=== PATIENT | female | born 1975 | race Two or more races ===

== ENCOUNTER → 2017-07-05 | Outpatient (CLI) | payer OTHER | LOC: BRMIMAGING 08:04 | PROVIDERS: ATTEND Family Medicine | DX: Z12.31 Encounter for screening mammogram for malignant neoplasm of breast (principal) ==

== ENCOUNTER → 2018-02-05 | Outpatient (CLI) | payer OTHER | LOC: BRMIMAGING 10:17 | PROVIDERS: ATTEND Family Medicine | DX: J98.09 Other diseases of bronchus, not elsewhere classified (principal); R05 Cough; R14.0 Abdominal distension (gaseous) | CPT/HCPCS: 71046-PO ==